=== PATIENT | male | born 2000 | race Two or more races ===

== ENCOUNTER 2024-02-28 19:34 | Emergency (ER) | payer BC ==
[~2024-02-28] VITALS: Ht 172.7 cm; Wt 83.9 kg
[2024-02-28 19:50] VITALS: BP 128/76; TEMP 97.8
[2024-02-28] MEDS ORDERED: IBUPROFEN 400 MG TABLET ONE (20:27)
[2024-02-28] MEDS: IBUPROFEN 400 MG TABLET PO ONE (20:30)
[2024-02-28] MEDS ORDERED: IBUP-1490 PO (21:36)
[2024-02-29 00:37] VITALS: O2SAT 99
== END 2024-02-29 00:38 | disposition home or self-care (01) ==
LOC: ER 19:40
DX: M25.561 Pain in right knee (principal); M25.461 Effusion, right knee; X50.1XXA Overexertion from prolonged static or awkward postures, initial encounter; Y93.67 Activity, basketball; Y92.89 Other specified places as the place of occurrence of the external cause; Y99.8 Other external cause status
CPT/HCPCS: 73564-TC

== ENCOUNTER 2024-06-17 09:50 | Inpatient (IN) | payer BC ==
[~2024-06-17] VITALS: Ht 170.2 cm; Wt 77.6 kg
[~2024-06-17 09:50] MED LIST: IBUP-1490 PO
[2024-06-17 10:00] VITALS: BP 120/62; TEMP 97.5; O2SAT 99
[2024-06-17] MEDS ORDERED: BUPIVACAINE 0.5 % PF 150 MG/30 ML VIAL ONE (11:08)
[2024-06-17] MEDS ORDERED: VANCOMYCIN 1 GM VIAL ONE (11:08)
[2024-06-17] MEDS ORDERED: EPINEPHRINE (1:1000) 1 MG/ML AMPUL ONE ×2 (11:08→11:32)
[2024-06-17] MEDS ORDERED: BUPIVACAINE 0.25% 75 MG/30 ML VIAL ONE (11:08)
[2024-06-17] MEDS ORDERED: POLYMYXIN B SULFATE 0 UNITS ONE (11:09)
[2024-06-17] MEDS ORDERED: CEFAZOLIN 2 GM ONE ×2 (11:31→15:35)
[2024-06-17] MEDS ORDERED: TRANEXAMIC ACID 1,000 MG/10 ML VIAL ONE (11:31)
[2024-06-17] MEDS ORDERED: ROPIVACAINE HCL 0.5% 5 MG/ML 30ML VIAL ONE (11:56)
[2024-06-17] MEDS ORDERED: FENTANYL PF 100MCG/2ML AMPUL ONE (11:59)
[2024-06-17] MEDS ORDERED: FAMOTIDINE/PF INJ 20 MG/2 ML VIAL IV ONE (11:59)
[2024-06-17] MEDS ORDERED: MIDAZOLAM HCL 2 MG/2ML VIAL ONE (11:59)
[2024-06-17] MEDS ORDERED: dexaMETHasone SOD PHOSPHATE 4 MG/ML VIAL ONE ×2 (12:14)
[2024-06-17] MEDS ORDERED: HYDROMORPHONE INJ 2 MG/ML DISP.SYRIN IV PRN (14:00)
[2024-06-17] MEDS ORDERED: ONDANSETRON HCL/PF 4 MG/2 ML VIAL IVP PRN ×2 (14:00→23:30)
[2024-06-17] MEDS ORDERED: FENTANYL PF 100MCG/2ML AMPUL IV PRN (14:00)
[2024-06-17] MEDS ORDERED: HYDROMORPHONE INJ 2 MG/ML DISP.SYRIN ONE (16:42)
[2024-06-17] MEDS ORDERED: KETOROLAC TROMETHAMINE INJ 60 MG/2 ML VIAL IM ONE (16:59)
[2024-06-17 20:00] VITALS: BP 125/68; TEMP 98; O2SAT 98
[2024-06-17] MEDS ORDERED: HYDROCODONE/APAP 5/325MG TABLET PO PRN (23:30)
[2024-06-17] MEDS ORDERED: MAGNESIUM HYDROXIDE 30 ML UDC PO PRN (23:30)
[2024-06-17] MEDS ORDERED: IBUPROFEN 600 MG TABLET PO PRN (23:30)
[2024-06-17] MEDS ORDERED: ACETAMINOPHEN 325 MG TABLET PO PRN (23:30)
[2024-06-18] VITALS: BP 134/80; TEMP 98.1; O2SAT 98
[2024-06-18 00:17] VITALS: BP 134/80; TEMP 98.1; O2SAT 98
[2024-06-18 04:00] VITALS: BP 117/68; TEMP 97.9; O2SAT 100
[2024-06-18 04:59] VITALS: BP 117/68; TEMP 97.9; O2SAT 100
[2024-06-18 07:31] LABS: HEMATOCRIT 41 % (39-51); HEMOGLOBIN 13.7 g/dL (13.5-17.5); LYMPHOCYTES # (AUTO) 1.1 K/uL (0.8-4.8); MEAN CORPUSCULAR HEMOGLOBIN 29 PG (26.0-33.0); MEAN CORPUSCULAR HGB CONC 33 g/dl (31.0-36.0); MEAN CORPUSCULAR VOLUME 88 fL (80-96); MONOCYTES # (AUTO) 1.4 K/uL (0.1-1.30); MONOCYTES % (AUTO) 9.9 % (2.0-12.0); NEUTROPHILS # (AUTO) 11.8 K/uL (1.8-8.9); NEUTROPHILS % (AUTO) 82.1 % (43.0-81.0); PLATELET COUNT (AUTO) 249 K/uL (150-450); RED BLOOD CELL COUNT(AUTO) 4.67 MIL/uL (4.5-6.0); RED CELL DISTRIBUTION WIDTH 12.9 % (11.5-15.0); WHITE BLOOD COUNT (AUTO) 14.4 K/uL (4.3-11.0)
[2024-06-18 07:50] LABS: CALCIUM, SERUM 8.4 mg/dL (8.5-10.1); POTASSIUM 3.8 mmol/L (3.5-5.1)
[2024-06-18 08:00] VITALS: BP 106/64; TEMP 97.7; O2SAT 100
[2024-06-18] MEDS: ASPIRIN 325 MG TABLET PO SCH (08:22)
[2024-06-18] MEDS: PANTOPRAZOLE 40 MG TABLET.DR PO SCH (08:22)
== END 2024-06-18 11:15 | disposition home or self-care (01) | DRG 489 ==
LOC: DS 09:50 → MED 09:51
PROVIDERS: ADMIT Nurse Practitioner Family; ATTEND Internal Medicine
PROC: 0MRN47Z Replacement of Right Knee Bursa and Ligament with Autologous Tissue Substitute, Percutaneous Endoscopic Approach (ICD-10-PCS; principal; 2024-06-17)
PROC: 0SBC4ZZ Excision of Right Knee Joint, Percutaneous Endoscopic Approach (ICD-10-PCS; 2024-06-17)
DX: S83.511A Sprain of anterior cruciate ligament of right knee, initial encounter (principal); Y93.67 Activity, basketball; S83.281A Other tear of lateral meniscus, current injury, right knee, initial encounter; S83.241A Other tear of medial meniscus, current injury, right knee, initial encounter; Y92.89 Other specified places as the place of occurrence of the external cause
CPT/HCPCS: 36415; 80048-TC; 83735-TC; 84100-TC; 85025-TC; G0378; J0171; J0690; J1100; J1171; J1885; J2250; J2405; J2704; J2795; J3010; J3370; J3490; J7030